=== PATIENT | female | born 1990 | race Caucasian/White ===

== ENCOUNTER 2024-01-01 02:05 | Emergency (ER) | payer OTHER ==
[~2024-01-01] VITALS: Ht 157.5 cm; Wt 59.0 kg
[2024-01-01 02:48] LABS: APPEARANCE,URINE CLEAR (CLEAR); BILIRUBIN,URINE NEGATIVE (NEGATIVE); BLOOD, URINE NEGATIVE Ery/uL (NEGATIVE); COLOR,URINE YELLOW (YELLOW); KETONES,URINE NEGATIVE (NEGATIVE); LEUKOCYTE ESTERASE ,URINE TRACE (NEGATIVE); NITRITE, URINE NEGATIVE (NEGATIVE); PH,URINE 7.5 (5.0-8.0); PROTEIN,URINE NEGATIVE (NEGATIVE); UGLUCOSE NEGATIVE (NEGATIVE); UROBILINOGEN,URINE 0.2 EU/dL (0.2)
[2024-01-01] MEDS ORDERED: ONDANSETRON HCL/PF 4 MG/2 ML VIAL ONE (02:51)
[2024-01-01 02:52] LABS: PREGNANCY TEST URINE QUAL NEGATIVE (NEGATIVE)
[2024-01-01] MEDS ORDERED: KETOROLAC TROMETHAMINE INJ 30 MG/ML VIAL ONE (02:52)
[2024-01-01] MEDS ORDERED: methylPREDNISolone SOD SUCC 40 MG/ML VIAL ONE (02:52)
[2024-01-01 02:59] LABS: BASOPHILS # (AUTO) 0.1 K/uL (0.0-0.2); BASOPHILS % (AUTO) 0.8 % (0.0-2.0); EOSINOPHILS % (AUTO) 0.1 % (0.0-6.0); HEMATOCRIT 40 % (33-45); HEMOGLOBIN 13.4 g/dL (11.5-14.8); LYMPHOCYTES % (AUTO) 22.6 % (20.0-44.0); MEAN CORPUSCULAR HEMOGLOBIN 33 PG (26.0-33.0); MEAN CORPUSCULAR HGB CONC 34 g/dl (31.0-36.0); MEAN CORPUSCULAR VOLUME 96 fL (82-100); MONOCYTES # (AUTO) 0.3 K/uL (0.1-1.30); MONOCYTES % (AUTO) 3.8 % (2.0-12.0); NEUTROPHILS # (AUTO) 6.3 K/uL (1.8-8.9); NEUTROPHILS % (AUTO) 72.7 % (43.0-81.0); PLATELET COUNT (AUTO) 365 K/uL (150-450); RED BLOOD CELL COUNT(AUTO) 4.12 MIL/uL (4.0-5.2); RED CELL DISTRIBUTION WIDTH 13.3 % (11.5-15.0); WHITE BLOOD COUNT (AUTO) 8.7 K/uL (4.3-11.0)
[2024-01-01] MEDS: KETOROLAC TROMETHAMINE 15 MG/ML VIAL IV ONE (03:00)
[2024-01-01] MEDS: IV NS 0.9% 1,000 ML BAG IV ONE ×2 (03:00→03:38)
[2024-01-01] MEDS: methylPREDNISolone SOD SUCC 40 MG/ML VIAL IV ONE (03:00)
[2024-01-01] MEDS: ONDANSETRON HCL/PF 4 MG/2 ML VIAL IVP ONE (03:00)
[2024-01-01 03:03] LABS: ADD URINE CULTURE YES; BACTERIA,URINE 3+ /HPF (None Seen); RBC,URINE 0-2 /HPF (0-2)
[2024-01-01 03:19] LABS: CALCIUM, SERUM 8.7 mg/dL (8.5-10.1); CARBON DIOXIDE 23 mmol/L (21-32); CHLORIDE 103 mmol/L (98-107); CREATININE 0.7 mg/dL (0.6-1.3); GLUCOSE 99 mg/dL (74-106); POTASSIUM 4.1 mmol/L (3.5-5.1); SODIUM SERUM 142 mmol/L (136-145); UREA NITROGEN, BLOOD 9 mg/dL (7-18)
[2024-01-01] MEDS ORDERED: IOHEXOL-300 100 ML VIAL IV ONE (03:23)
[2024-01-01] MEDS ORDERED: IV NS 0.9% 250 ML IV ONE (03:23)
[2024-01-01 03:26] LABS: LACTIC ACID 3.5 mmol/L (0.4-2.0)
[2024-01-01 03:31] LABS: ALANINE AMINOTRANSFERASE 21 U/L (12-78); ALKALINE PHOSPHATASE 62 U/L (46-116); ASPARTATE AMINOTRANSFERASE 25 U/L (15-37); BILIRUBIN,DIRECT 0.2 mg/dL (0.0-0.2); BILIRUBIN,TOTAL 0.5 mg/dL (0.2-1.0); LIPASE 35 U/L (16-77); TOTAL PROTEIN, SERUM 7.4 g/dL (6.4-8.2)
[2024-01-01 03:45] LABS: INR 1.01 (0.91-1.10); PARTIAL THROMBOPLASTIN TIME 25.8 SEC (24.3-34.3); PROTHROMBIN TIME 10.7 SECS (9.2-11.1)
[2024-01-01] MEDS ORDERED: MORPHINE SULFATE INJ 4 MG/ML DISP.SYRIN ONE (04:29)
[2024-01-01] MEDS: MORPHINE SULFATE INJ 2 MG/ML DISP.SYRIN IV ONE (04:32)
[2024-01-01] MEDS ORDERED: KETO10TA2 PO (05:06)
[2024-01-01] MEDS ORDERED: ONDA4TAB11 PO (05:06)
[2024-01-01 06:51] VITALS: BP 116/69; TEMP 99.3; O2SAT 98
== END 2024-01-01 06:51 | disposition home or self-care (01) ==
LOC: ER 02:11
DX: R10.84 Generalized abdominal pain (principal); K50.90 Crohn's disease, unspecified, without complications; K92.0 Hematemesis; G89.29 Other chronic pain; M54.9 Dorsalgia, unspecified; Z87.42 Personal history of other diseases of the female genital tract; Z60.2 Problems related to living alone
CPT/HCPCS: 99285; 74177; 96374; 96361; 96375; 85025; 80048; 87086; 83605; 83690; 80076; 84703; 81001; 36415; 85730; J2270; J2919; J1885; J2405; J7030 ×2; J7050; Q9967

== ENCOUNTER 2024-06-17 08:49 | Emergency (ER) | payer OTHER ==
[~2024-06-17] VITALS: Ht 157.5 cm; Wt 59.0 kg
[~2024-06-17 08:49] MED LIST: KETO10TA2 PO; ONDA4TAB11 PO
[2024-06-17 09:19] VITALS: TEMP 98.5
[2024-06-17] MEDS: HYDROMORPHONE 1 MG/1 ML DISP.SYRIN IV ONE ×2 (09:30→11:48)
[2024-06-17] MEDS: ONDANSETRON HCL/PF 4 MG/2 ML VIAL IVP ONE (09:30)
[2024-06-17] MEDS: IV NS 0.9% 1,000 ML BAG IV ONE (09:30)
[2024-06-17] MEDS ORDERED: ONDANSETRON HCL/PF 4 MG/2 ML VIAL ONE (09:34)
[2024-06-17] MEDS ORDERED: HYDROMORPHONE 1 MG/1 ML DISP.SYRIN ONE ×2 (09:34→11:44)
[2024-06-17 09:46] LABS: BASOPHILS # (AUTO) 0.1 K/uL (0.0-0.2); BASOPHILS % (AUTO) 1.8 % (0.0-2.0); EOSINOPHILS # (AUTO) 0.1 K/uL (0.0-0.7); HEMATOCRIT 38 % (33-45); HEMOGLOBIN 12.9 g/dL (11.5-14.8); LYMPHOCYTES # (AUTO) 2.5 K/uL (0.8-4.8); LYMPHOCYTES % (AUTO) 34.2 % (20.0-44.0); MEAN CORPUSCULAR HEMOGLOBIN 31 PG (26.0-33.0); MEAN CORPUSCULAR HGB CONC 34 g/dl (31.0-36.0); MEAN CORPUSCULAR VOLUME 92 fL (82-100); MONOCYTES # (AUTO) 0.7 K/uL (0.1-1.30); MONOCYTES % (AUTO) 9.5 % (2.0-12.0); NEUTROPHILS # (AUTO) 3.9 K/uL (1.8-8.9); NEUTROPHILS % (AUTO) 53.5 % (43.0-81.0); PLATELET COUNT (AUTO) 316 K/uL (150-450); RED BLOOD CELL COUNT(AUTO) 4.16 MIL/uL (4.0-5.2); RED CELL DISTRIBUTION WIDTH 15.1 % (11.5-15.0); WHITE BLOOD COUNT (AUTO) 7.3 K/uL (4.3-11.0)
[2024-06-17] MEDS: CEFEPIME 1 GM in IV D5W 50 ML IV ONE (09:53)
[2024-06-17 09:55] LABS: CALCIUM, SERUM 8.6 mg/dL (8.5-10.1); CREATININE 0.8 mg/dL (0.6-1.3); POTASSIUM 3.8 mmol/L (3.5-5.1)
[2024-06-17 10:03] LABS: ALBUMIN 3.6 g/dL (3.4-5.0); BILIRUBIN,DIRECT 0.1 mg/dL (0.0-0.2); BILIRUBIN,TOTAL 0.2 mg/dL (0.2-1.0); INR 0.96 (0.91-1.10); PARTIAL THROMBOPLASTIN TIME 25.9 SEC (24.3-34.3); PROTHROMBIN TIME 10.2 SECS (9.2-11.1); TOTAL PROTEIN, SERUM 6.7 g/dL (6.4-8.2)
[2024-06-17 10:14] LABS: LACTIC ACID 1.6 mmol/L (0.4-2.0)
[2024-06-17 15:00] VITALS: BP 121/67; O2SAT 98
== END 2024-06-17 17:04 ==
LOC: ER 08:55
DX: K50.90 Crohn's disease, unspecified, without complications (principal); R11.2 Nausea with vomiting, unspecified; R14.0 Abdominal distension (gaseous); R10.2 Pelvic and perineal pain; Z79.899 Other long term (current) drug therapy; Z60.2 Problems related to living alone
CPT/HCPCS: 99285; 74176; 96365; 96375; 71045; 93005; 96376; 84145; 85025; 80048; 87040 ×2; 83605; 80076; 85730; 84702; J1171 ×2; J2405; J3490; J7060; J7030; J7050; J0692; A4223; 36415

== ENCOUNTER 2024-09-02 14:17 | Emergency (ER) | payer OTHER ==
[~2024-09-02] VITALS: Ht 157.5 cm; Wt 59.0 kg
[2024-09-02] MEDS ORDERED: KETOROLAC TROMETHAMINE INJ 30 MG/ML VIAL ONE (15:01)
[2024-09-02] MEDS ORDERED: ACETAMINOPHEN ES 500 MG TABLET ONE (15:02)
[2024-09-02] MEDS ORDERED: TDAP [DIPH/PERTUSSIS/TET] 0.5 ML VIAL IM ONE (15:02)
[2024-09-02] MEDS: TDAP [DIPH/PERTUSSIS/TET] 0.5 ML VIAL IM ONE (15:16)
[2024-09-02] MEDS: KETOROLAC TROMETHAMINE INJ 30 MG/ML VIAL IM ONE (15:17)
[2024-09-02] MEDS: ACETAMINOPHEN ES 500 MG TABLET PO ONE (15:19)
[2024-09-02 16:32] VITALS: BP 121/82; TEMP 98.9; O2SAT 98
== END 2024-09-02 16:29 | disposition home or self-care (01) ==
LOC: ER 14:21
DX: M25.561 Pain in right knee (principal); F17.200 Nicotine dependence, unspecified, uncomplicated; K50.90 Crohn's disease, unspecified, without complications; Z79.899 Other long term (current) drug therapy; Z60.2 Problems related to living alone; V00.141A Fall from scooter (nonmotorized), initial encounter; Y93.89 Activity, other specified; Y92.89 Other specified places as the place of occurrence of the external cause; Y99.8 Other external cause status
CPT/HCPCS: 73564-TC; 90715; J1885